=== PATIENT | male | born 1980 | race Asian ===

== ENCOUNTER 2018-12-10 10:54 | Emergency (ER) | payer OTHER ==
--- NOTE | 2018-12-10 11:21 | Emergency Department Report ---
ED Abdominal Pain HPI - General Chief Complaint: Abdominal Pain Stated Complaint: STOMACH/SPINAL PAIN Time Seen by Provider: 12/10/18 11:18 Source: patient Mode of arrival: Ambulatory Limitations: No Limitations - History of Present Illness Initial Comments: This is a 38-year-old male presents to the ED complaining of right-sided abdominal and back pain started this morning. Patient apparently said some nausea along with the pain but otherwise no other symptoms Patient denies fever/chills/vomiting/diarrhea or any unusual foods. MD Complaint: abdominal pain, flank pain Location: R flank Radiation: none Migration to: no migration Severity: mild Severity scale (0 -10): 5 Quality: cramping, aching - Related Data Previous Rx's Medication Instructions Recorded Last Taken Type Ketorolac [Toradol] 10 mg PO Q6H PRN #20 tablet 12/10/18 Unknown Rx Allergies Allergy/AdvReac Type Severity Reaction Status Date / Time No Known Allergies Allergy Unverified 12/10/18 10:56 ED Review of Systems ROS: Stated complaint: STOMACH/SPINAL PAIN Other details as noted in HPI Comment: All other systems reviewed and negative ED Past Medical Hx - Past Medical History Previous Medical History?: No - Surgical History Past Surgical History?: No - Social History Smoking Status: Current Every Day Smoker Substance Use Type: None - Medications Home Medications: Home Medications Medication Instructions Recorded Confirmed Last Taken Type Ketorolac [Toradol] 10 mg PO Q6H PRN #20 tablet 12/10/18 Unknown Rx ED Physical Exam - General Limitations: No Limitations General appearance: alert, in no apparent distress - Head Head exam: Present: atraumatic, normocephalic - Eye Eye exam: Present: normal appearance - ENT ENT exam: Present: mucous membranes moist - Neck Neck exam: Present: normal inspection - Respiratory Respiratory exam: Present: normal lung sounds bilaterally. Absent: respiratory distress - Cardiovascular Cardiovascular Exam: Present: regular rate, normal rhythm. Absent: systolic murmur, diastolic murmur, rubs, gallop - GI/Abdominal GI/Abdominal exam: Present: soft, normal bowel sounds - Rectal Rectal exam: Present: deferred - Extremities Exam Extremities exam: Present: normal inspection - Back Exam Back exam: Present: normal inspection - Neurological Exam Neurological exam: Present: alert, oriented X3 - Psychiatric Psychiatric exam: Present: normal affect, normal mood - Skin Skin exam: Present: warm, dry, intact, normal color. Absent: rash ED Course Vital Signs 12/10/18 12/10/18 11:01 11:17 Temperature 97.7 F Pulse Rate 54 L Respiratory 20 17 Rate Blood Pressure 148/85 O2 Sat by Pulse 98 Oximetry - Reevaluation(s) Reevaluation #1: 12/10/18 13:47 Patient is laying comfortably in the bed, she is feeling much better at this time. CT scan report pending ED Medical Decision Making - Lab Data Result diagrams: 12/10/18 11:04 12/10/18 11:04 - Radiology Data Radiology results: report reviewed, image reviewed Referring Physician: MARCIA WHITTAKER Patient Name: ANA PAULA QUINTANILLA Date of : 1980 Sex: Male Report Date: 2018-12-10 Report Status: [place] [address] Cat Scan Report Signed Patient: ANA PAULA QUINTANILLA MR#: [id number] : 1980 Acct:[id number] Age/Sex: 38 / M ADM Date: 12/10/18 Loc: ED Attending Dr: Ordering Physician: MARCO A PAYAN Date of Service: 12/10/18 Procedure(s): CT abdomen pelvis wo con Accession Number(s): [id number] cc: MARCO A PAYAN CT ABDOMEN AND PELVIS WITHOUT CONTRAST INDICATION / CLINICAL INFORMATION: right flank pain. TECHNIQUE: Axial CT images were obtained through the abdomen and pelvis without IV contrast. All CT scans at this location are performed using CT dose reduction for ALARA by means of automated exposure control. COMPARISON: None available. FINDINGS: LOWER CHEST: No significant abnormality. LIVER: No significant abnormality. GALLBLADDER: No significant abnormality. BILE DUCTS: No significant abnormality. PANCREAS: No significant abnormality. SPLEEN: No significant abnormality. ADRENALS: No significant abnormality. RIGHT KIDNEY and URETER: 3 mm nonobstructing stone in the upper pole. Mild perinephric edema. Tiny 2 mm stone in the distal right ureter just above the ureterovesical junction as seen on axial series 4 image 81. Minimal right hydroureteronephrosis. LEFT KIDNEY and URETER: Punctate nonobstructing intrarenal stones. Small cyst in the mid left kidney. No ureteral stone or hydronephrosis. STOMACH and SMALL BOWEL: No significant abnormality. COLON: No significant abnormality. APPENDIX: No significant abnormality. PERITONEUM: No free fluid. No free air. No fluid collection. LYMPH NODES: No significant adenopathy. AORTA and ARTERIES: No significant abnormality. IVC and VEINS: No significant abnormality. URINARY BLADDER: No significant abnormality. REPRODUCTIVE ORGANS: No significant abnormality. ADDITIONAL FINDINGS: None. 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 IMPRESSION: 1. 2 mm stone in the distal right ureter with minimal right hydroureteronephrosis and mild perinephric stranding. 2. Bilateral nephrolithiasis. Signer Name: Vin Linn MD Signed: 12/10/2018 1:47 PM Workstation Name: [id number] - Medical Decision Making 38-year-old male presents with CBC, CMP, urinalysis all performed. All labs within normal limits no signs of UTI. CT scan of the abdomen ordered. Patient received Toradol and Zofran and 1 L of fluids in the ED. She is sitting comfortably in the ED.. - Differential Diagnosis kidney stone, UTI, pancreatitis Critical care attestation.: If time is entered above; I have spent that time in minutes in the direct care of this critically ill patient, excluding procedure time. ED Disposition Clinical Impression: Kidney calculi, Acute flank pain Disposition: DC-01 TO HOME OR SELFCARE Is pt being admited?: No Does the pt Need Aspirin: No Condition: Stable Instructions: Kidney Stones (ED), Renal Colic (ED), Flank Pain (ED) Additional Instructions: Make sure to follow up with the primary care physician as discussed. Take all your medications as you've been prescribed. If you have any worsening symptoms or develop new symptoms please return to ED immediately. Prescriptions: Ketorolac [Toradol] 10 mg PO Q6H PRN #20 tablet PRN Reason: Pain Referrals: REINIER OROZCO MD [Primary Care Provider] - 3-5 Days [facility] [Provider Group] - 3-5 Days Forms: Accompanied Note, Work/School Release Form(ED) Time of Disposition: 14:20
[2018-12-10 11:24] LABS: Basophils % (Auto) 0.6 % (0.0-1.8); Eosinophils % (Auto) 0.1 % (0.0-4.3); Hematocrit 41.3 % (35.5-45.6); Lymphocytes # (Auto) 0.7 K/mm3 (1.2-5.4); Lymphocytes % (Auto) 8.7 % (13.4-35.0); Mean Corpuscular HGB Conc 34 % (32-34); Mean Corpuscular Volume 88 fl (84-94); Monocytes # (Auto) 0.5 K/mm3 (0.0-0.8); Platelet Count 225 K/mm3 (140-440); Red Blood Count 4.67 M/mm3 (3.65-5.03); Red Cell Distribution Width 14.5 % (13.2-15.2)
[2018-12-10 11:42] LABS: Bilirubin,Urine NEG (Negative); Blood,Urine LG (Negative); Color,Urine Yellow (Yellow); Mucus,Urine 3+ /HPF; Protein,Urine <15 mg/dL mg/dL (Negative); Urobilinogen,Urine < 2.0 mg/dL (<2.0)
[2018-12-10 11:44] LABS: Alanine Aminotransferase 11 units/L (7-56); Albumin 3.9 g/dL (3.9-5); BUN/Creatinine Ratio 9; Blood Urea Nitrogen 11 mg/dL (9-20); Calcium 9.2 mg/dL (8.4-10.2); Hemolysis Index 10
[2018-12-10] MEDS ORDERED: ZOFRAN IM ONE (12:00)
[2018-12-10] MEDS ORDERED: TORADOL IM ONE (12:00)
[2018-12-10] MEDS ORDERED: NACL 0.9% 1000 ML 1,000 ML IV ONE (12:01)
--- NOTE | 2018-12-10 13:51 | Cat Scan Report ---
CT ABDOMEN AND PELVIS WITHOUT CONTRAST INDICATION / CLINICAL INFORMATION: right flank pain. TECHNIQUE: Axial CT images were obtained through the abdomen and pelvis without IV contrast. All CT scans at [facility] location are performed using CT dose reduction for ALARA by means of automated exposure control. COMPARISON: None available. FINDINGS: LOWER CHEST: No significant abnormality. LIVER: No significant abnormality. GALLBLADDER: No significant abnormality. BILE DUCTS: No significant abnormality. PANCREAS: No significant abnormality. SPLEEN: No significant abnormality. ADRENALS: No significant abnormality. RIGHT KIDNEY and URETER: 3 mm nonobstructing stone in the upper pole. Mild perinephric edema. Tiny 2 mm stone in the distal right ureter just above the ureterovesical junction as seen on axial series 4 image 81. Minimal right hydroureteronephrosis. LEFT KIDNEY and URETER: Punctate nonobstructing intrarenal stones. Small cyst in the mid left kidney. No ureteral stone or hydronephrosis. STOMACH and SMALL BOWEL: No significant abnormality. COLON: No significant abnormality. APPENDIX: No significant abnormality. PERITONEUM: No free fluid. No free air. No fluid collection. LYMPH NODES: No significant adenopathy. AORTA and ARTERIES: No significant abnormality. IVC and VEINS: No significant abnormality. URINARY BLADDER: No significant abnormality. REPRODUCTIVE ORGANS: No significant abnormality. ADDITIONAL FINDINGS: None. 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 IMPRESSION: 1. 2 mm stone in the distal right ureter with minimal right hydroureteronephrosis and mild perinephri c stranding. 2. Bilateral nephrolithiasis. Signer Name: Vin Linn MD Signed: 12/10/2018 1:47 PM Workstation Name: [id number]
[2018-12-10 14:34] VITALS: BP 135/88
== END 2018-12-10 14:33 | disposition home or self-care (01) ==
LOC: ED 10:54
DX: N20.0 Calculus of kidney (principal); F17.200 Nicotine dependence, unspecified, uncomplicated
CPT/HCPCS: 36415; 74176; 80053; 81001; 85025; 96372; 99284; J1885; J2405; J7030

== ENCOUNTER 2021-10-18 01:03 | Emergency (ER) | payer SELFPAY | END 2021-10-19 01:55 | disposition left against medical advice (07) | LOC: ED 01:03 | DX: R10.9 Unspecified abdominal pain (principal); Z53.21 Procedure and treatment not carried out due to patient leaving prior to being seen by health care provider ==